=== PATIENT | male | born 1995 | race African-American/Black ===

== ENCOUNTER 2017-07-15 18:07 | Emergency (ER) | payer BC ==
[~2017-07-15] VITALS: Ht 182.9 cm; Wt 66.2 kg
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
[2017-07-15 19:05] LABS: BARBITURATES NEG (NEG); BENZODIAZEPINES NEG (NEG); CANNABINOIDS NEG (NEG); COCAINE NEG (NEG); METHADONE NEG (NEG); OPIATES NEG (NEG); PHENCYCLIDINE NEG (NEG)
[2017-07-15] MEDS ORDERED: diazePAM 5 MG TABLET PO ONE (19:15)
[2017-07-15] MEDS ORDERED: KETOROLAC 30 MG/ML INJ. IV ONE (19:15)
[2017-07-15] MEDS ORDERED: IV NORMAL SALINE 1000ML BAG 1,000 ML IV ONE (19:15)
[2017-07-15 19:32] LABS: BASO # 0.1 x10^3/uL (0.0-0.2); BASO % 1 % (0-3); EOS % 1 % (0-3); HEMATOCRIT 48.6 % (39.0-53.0); HEMOGLOBIN 16.4 g/dL (13.0-17.5); LYMPH # 2.1 x10^3/uL (1.0-4.8); LYMPH % 32 % (24-48); MEAN CORPUSCULAR HEMOGLOBIN 29 pg (25-35); MEAN CORPUSCULAR HGB CONC 34 g/dL (31-37); MEAN CORPUSCULAR VOLUME 86 fL (79-100); MONO % 7 % (0-9); NEUT % 59 % (31-73); PLATELET COUNT 270 x10^3/uL (140-400); RED BLOOD COUNT 5.66 x10^6/uL (4.30-5.70); RED CELL DISTRIBUTION WIDTH 13.3 % (11.5-14.5); WHITE BLOOD COUNT 6.7 x10^3/uL (4.0-11.0)
[2017-07-15 19:49] LABS: CALCIUM 9.6 mg/dL (8.5-10.1); CREATININE 1.2 mg/dL (0.7-1.3); GFR 93.4; POTASSIUM 3.6 mmol/L (3.5-5.1)
[2017-07-15 20:10] LABS: CKMB MASS < 0.5 ng/mL (0.0-3.6); CREATINE KINASE 197 U/L (39-308)
[2017-07-15 20:30] VITALS: BP 118/64
[2017-07-15] MEDS ORDERED: NAPR500T4 PO (20:38)
[2017-07-15] MEDS ORDERED: DIAZ5TAB PO (20:38)
--- NOTE | 2017-07-16 07:02 | EKG ---
[facility] [address] [place] [address] Test Date: 2017-07-15 Test Time: 18:41:48 Pat Name: FERNANDEZ BORRERO Department: Room: Gender: M Lube Technician: : 1995 Requested By: VERITO FERMIN Order Number: [id number] Reading MD: Temitope Lawrence Measurements Intervals [place] Rate: 119 P: 42 [place]: 114 QRS: 113 QRSD: 80 T: 61 QT: 284 QTc: 406 Interpretive Statements SINUS TACHYCARDIA LEFT ATRIAL ABNORMALITY ABNORMAL RIGHT AXIS DEVIATION ABNORMAL ECG Electronically Signed On 07-16-2017 19:53:34 CDT by Temitope Lawrence
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
== END 2017-07-15 20:45 | disposition home or self-care (01) ==
LOC: ER 18:07
DX: G89.29 Other chronic pain (principal); M54.2 Cervicalgia; F41.9 Anxiety disorder, unspecified; R06.02 Shortness of breath; R07.89 Other chest pain
CPT/HCPCS: 36415; 71020; 80048; 80307; 82553; 84484; 85025; 85379; 93005; 96361; 96374; 99285; G0480; J1885; J7030; G0479

== ENCOUNTER 2019-04-05 08:37 | Emergency (ER) | payer BC ==
[~2019-04-05] VITALS: Ht 182.9 cm; Wt 68.0 kg
[~2019-04-05 08:37] MED LIST: DIAZ5TAB PO; NAPR-514 PO
[2019-04-05] MEDS ORDERED: MORPHINE SULFATE 10 MG/ML VIAL. IV ONE ×2 (09:00→10:30)
[2019-04-05] MEDS ORDERED: ONDANSETRON PF 4 MG/2 ML VIAL. IV ONE (09:00)
--- NOTE | 2019-04-05 09:17 | PHYS DOC ---
Past Medical History Past Medical History: No Pertinent History Past Surgical History: No Surgical History Alcohol Use: None Drug Use: None Adult General Chief Complaint Chief Complaint: GROIN PAIN HPI HPI Patient is a 23 year old male with no significant medical history who presents to the ED today complaining of 10 out of 10 right groin pain that began yesterday after heavy lifting at work. Patient states he noted a mass on the right groin region after lifting at work when the pain began. Patient states the pain to the area is throbbing and intermittent. Denies anything specifically exacerbating or relieving. Denies having history of inguinal hernias. Denies any nausea vomiting. Denies any concerns of STDs, denies any nausea, vomiting, diarrhea, abdominal pain. Review of Systems Review of Systems Constitutional: Denies fever or chills [] Eyes: Denies change in visual acuity, redness, or eye pain [] HENT: Denies nasal congestion or sore throat [] Respiratory: Denies cough or shortness of breath [] Cardiovascular: No additional information not addressed in HPI [] GI: Denies abdominal pain, nausea, vomiting, bloody stools or diarrhea [] Male -right groin mass : Denies dysuria or hematuria [] Musculoskeletal: Denies back pain or joint pain [] Integument: Denies rash or skin lesions [] Neurologic: Denies headache, focal weakness or sensory changes [] Endocrine: Denies polyuria or polydipsia [] All other systems were reviewed and found to be within normal limits, except as documented in this note. Current Medications Current Medications Current Medications Medications (Trade) Dose Ordered Sig/Michael Start Time Stop Time Status Last Admin Dose Admin Azithromycin (Zithromax) 1,000 mg 1X ONCE 04/05/19 11:30 04/05/19 11:32 DC Ceftriaxone Sodium (Rocephin) 1 gm 1X ONCE 04/05/19 11:30 04/05/19 11:32 DC Info (CONTRAST GIVEN -- Rx MONITORING) 1 each PRN DAILY PRN 04/05/19 09:30 04/07/19 09:29 Iohexol (Omnipaque 300 Mg/ml) 75 ml 1X ONCE 04/05/19 09:30 04/05/19 09:31 DC 04/05/19 09:50 75 ML Morphine Sulfate (Morphine Sulfate) 5 mg 1X ONCE 04/05/19 10:30 04/05/19 10:31 DC 04/05/19 10:26 5 MG Ondansetron HCl (Zofran) 4 mg 1X ONCE 04/05/19 09:00 04/05/19 09:01 DC 04/05/19 09:15 4 MG Allergies Allergies Allergies Coded Allergies Type Severity Reaction Last Updated Verified No Known Drug Allergies 07/15/17 No Physical Exam Physical Exam Constitutional: Well developed, well nourished, no acute distress, non-toxic appearance. [] HENT: Normocephalic, atraumatic, bilateral external ears normal, oropharynx moist, no oral exudates, nose normal. [] Eyes: PERRLA, EOMI, conjunctiva normal, no discharge. [] Neck: Normal range of motion, no tenderness, supple, no stridor. [] Cardiovascular:Heart rate regular rhythm, no murmur [] Lungs & Thorax: Bilateral breath sounds clear to auscultation [] Abdomen: Bowel sounds normal, soft, no tenderness, no masses, no pulsatile masses. [] Male exam-right groin with a mass suspicious of an inguinal hernia that was reducible in the ED by me. No testicular mass is noted. Skin: Warm, dry, no erythema, no rash. [] Back: No tenderness, no CVA tenderness. [] Extremities: No tenderness, no cyanosis, no clubbing, ROM intact, no edema. [] Neurologic: Alert and oriented X 3, normal motor function, normal sensory function, no focal deficits noted. [] Psychologic: Affect normal, judgement normal, mood normal. [] Current Patient Data Vital Signs Vital Signs Date Time Temp Pulse Resp B/P (MAP) Pulse Ox O2 Delivery O2 Flow Rate FiO2 04/05/19 10:26 15 96 Room Air 04/05/19 08:47 98.4 87 133/70 (91) 98.4 Lab Values Laboratory Tests Test 04/05/19 09:05 04/05/19 10:45 White Blood Count 8.2 x10^3/uL (4.0-11.0) Red Blood Count 5.12 x10^6/uL (4.30-5.70) Hemoglobin 14.5 g/dL (13.0-17.5) Hematocrit 43.1 % (39.0-53.0) Mean Corpuscular Volume 84 fL (79-100) Mean Corpuscular Hemoglobin 28 pg (25-35) Mean Corpuscular Hemoglobin Concent 34 g/dL (31-37) Red Cell Distribution Width 13.7 % (11.5-14.5) Platelet Count 246 x10^3/uL (140-400) Neutrophils (%) (Auto) 38 % (31-73) Lymphocytes (%) (Auto) 49 % (24-48) H Monocytes (%) (Auto) 8 % (0-9) Eosinophils (%) (Auto) 4 % (0-3) H Basophils (%) (Auto) 1 % (0-3) Neutrophils # (Auto) 3.1 x10^3/uL (1.8-7.7) Lymphocytes # (Auto) 4.0 x10^3/uL (1.0-4.8) Monocytes # (Auto) 0.7 x10^3/uL (0.0-1.1) Eosinophils # (Auto) 0.3 x10^3/uL (0.0-0.7) Basophils # (Auto) 0.1 x10^3/uL (0.0-0.2) Sodium Level 138 mmol/L (136-145) Potassium Level 3.8 mmol/L (3.5-5.1) Chloride Level 101 mmol/L (98-107) Carbon Dioxide Level 27 mmol/L (21-32) Anion Gap 10 (6-14) Blood Urea Nitrogen 19 mg/dL (8-26) Creatinine 1.1 mg/dL (0.7-1.3) Estimated GFR (Cockcroft-Gault) 101.3 BUN/Creatinine Ratio 17 (6-20) Glucose Level 84 mg/dL (70-99) Calcium Level 9.3 mg/dL (8.5-10.1) Total Bilirubin 0.9 mg/dL (0.2-1.0) Aspartate Amino Transferase (AST) 27 U/L (15-37) Alanine Aminotransferase (ALT) 25 U/L (16-63) Alkaline Phosphatase 68 U/L (46-116) Total Protein 8.6 g/dL (6.4-8.2) H Albumin 4.3 g/dL (3.4-5.0) Albumin/Globulin Ratio 1.0 (1.0-1.7) Urine Collection Type Void Urine Color Yellow Urine Clarity Clear Urine pH 7.0 Urine Specific [place] >=1.030 Urine Protein Negative mg/dL (NEG-TRACE) Urine Glucose (UA) Negative mg/dL (NEG) Urine Ketones (Stick) Trace mg/dL (NEG) Urine Blood Trace (NEG) Urine Nitrite Negative (NEG) Urine Bilirubin Negative (NEG) Urine Urobilinogen Dipstick 1.0 mg/dL (0.2 mg/dL) Urine Leukocyte Esterase Large (NEG) Urine RBC Occ /HPF (0-2) Urine WBC 5-10 /HPF (0-4) Urine Bacteria 0 /HPF (0-FEW) Laboratory Tests 04/05/19 09:05 Laboratory Tests 04/05/19 09:05 EKG EKG [] Radiology/Procedures Radiology/Procedures []PROCEDURE: CT ABD PELV W/ IV CONTRST ONLY Examination: CT of the abdomen pelvis with IV contrast HISTORY: History of right groin mass, inguinal hernia for one day COMPARISON: None available Technique: Axial CT images of the abdomen pelvis were performed with IV contrast. Coronal and sagittal reformats are performed. Exposure: One or more of the following individualized dose reduction techniques were utilized for this examination: 1. Automated exposure control 2. Adjustment of the mA and/or kV according to patient size 3. Use of iterative reconstruction technique FINDINGS: The bibasilar lungs are clear. No evidence of free air identified in the abdomen. The visualized liver, spleen, adrenals grossly appears unremarkable. The gallbladder is mildly distended. The stomach is mildly distended. The visualized pancreas grossly appears unremarkable. Few fluid distended small bowel loops identified. Feces and gas noted in the colon. The appendix is not well-visualized. No evidence of obvious inguinal hernia identified. The bilateral kidneys enhance symmetrically. No evidence of lytic bony destructive lesion. IMPRESSION: 1. Few fluid distended small bowel loops identified in the lower abdomen, nonspecific. Otherwise unremarkable exam. Electronically signed by: Ronnie Johnson MD (04/05/2019 10:10 AM) [facility] DICTATED and SIGNED BY: RONNIE JOHNSON MD DATE: 04/05/19 1010 Course & Med Decision Making Course & Med Decision Making Pertinent Labs and Imaging studies reviewed. (See chart for details) This is a 23-year-old male patient presenting to the ED today with a mass and pain to the right groin area after heavy lifting at work yesterday. The mass was suspicious of an inguinal hernia which was reduced in the ED successfully. CBC, CMP-no acute findings. CT of the abdomen and pelvic was negative for any acute findings. Urine analysis is noted for large amount of leukocytes-urine was sent to lab for STD check, patient was treated prophylaxis. D/C with doxycycline. STD education provided. Dragon Disclaimer Dragon Disclaimer This electronic medical record was generated, in whole or in part, using a voice recognition dictation system. Departure Departure Impression: Primary Impression: Urinary tract infection Additional Impression: Inguinal hernia, right Disposition: HOME, SELF-CARE Condition: STABLE Referrals: NO PCP (PCP) NOLBERTO STRICKLAND MD Follow-up in one week for the hernia Patient Instructions: Inguinal Hernia, Adult, Care After, Urinary Tract Infection Additional Instructions: You were evaluated in the emergency room and noted to have a right inguinal hernia which was reduced in the emergency room. We provided you a general surgeon, follow-up with them in the next 1 week for the hernia. Your urine was noted to have infection. We treated you in the emergency room and sent you home with more antibiotics, ensure you take them to completion. Scripts Doxycycline Hyclate (DOXYCYCLINE HYCLATE) 100 Mg Tablet 1 TAB PO BID, #14 TAB Prov: VERITO FERMIN APRN 04/05/19 Problem Qualifiers Primary Impression: Urinary tract infection Urinary tract infection type: site unspecified Hematuria presence: without hematuria Qualified Codes: N39.0 - Urinary tract infection, site not specified VERITO FERMIN APRN Apr 05, 2019 09:17
[2019-04-05] MEDS ORDERED: IOHEXOL 300 MG/ML 100ML VIAL. IV ONE (09:30)
[2019-04-05] MEDS ORDERED: CONTRAST GIVEN. MC PRN (09:30)
[2019-04-05 09:33] LABS: BASO # 0.1 x10^3/uL (0.0-0.2); BASO % 1 % (0-3); EOS # 0.3 x10^3/uL (0.0-0.7); EOS % 4 % (0-3); HEMATOCRIT 43.1 % (39.0-53.0); HEMOGLOBIN 14.5 g/dL (13.0-17.5); LYMPH % 49 % (24-48); MEAN CORPUSCULAR HEMOGLOBIN 28 pg (25-35); MEAN CORPUSCULAR HGB CONC 34 g/dL (31-37); MEAN CORPUSCULAR VOLUME 84 fL (79-100); MONO # 0.7 x10^3/uL (0.0-1.1); MONO % 8 % (0-9); NEUT # 3.1 x10^3/uL (1.8-7.7); NEUT % 38 % (31-73); PLATELET COUNT 246 x10^3/uL (140-400); RED BLOOD COUNT 5.12 x10^6/uL (4.30-5.70); RED CELL DISTRIBUTION WIDTH 13.7 % (11.5-14.5); WHITE BLOOD COUNT 8.2 x10^3/uL (4.0-11.0)
[2019-04-05 09:39] LABS: CALCIUM 9.3 mg/dL (8.5-10.1); CREATININE 1.1 mg/dL (0.7-1.3); GFR 101.3; POTASSIUM 3.8 mmol/L (3.5-5.1)
[2019-04-05 09:45] LABS: ALBUMIN 4.3 g/dL (3.4-5.0); TOTAL BILIRUBIN 0.9 mg/dL (0.2-1.0); TOTAL PROTEIN 8.6 g/dL (6.4-8.2)
--- NOTE | 2019-04-05 10:12 | RAD ---
Examination: CT of the abdomen pelvis with IV contrast HISTORY: History of right groin mass, inguinal hernia for one day COMPARISON: None available Technique: Axial CT images of the abdomen pelvis were performed with IV contrast. Coronal and sagittal reformats are performed. Exposure: One or more of the following individualized dose reduction techniques were utilized for this examination: 1. Automated exposure control 2. Adjustment of the mA and/or kV according to patient size 3. Use of iterative reconstruction technique FINDINGS: The bibasilar lungs are clear. No evidence of free air identified in the abdomen. The visualized liver, spleen, adrenals grossly appears unremarkable. The gallbladder is mildly distended. The stomach is mildly distended. The visualized pancreas grossly appears unremarkable. Few fluid distended small bowel loops identified. Feces and gas noted in the colon. The appendix is not well-visualized. No evidence of obvious inguinal hernia identified. The bilateral kidneys enhance symmetrically. No evidence of lytic bony destructive lesion. IMPRESSION: 1. Few fluid distended small bowel loops identified in the lower abdomen, nonspecific. Otherwise unremarkable exam. Electronically signed by: Ronnie Johnson MD (04/05/2019 10:10 AM) [facility]
[2019-04-05 11:01] LABS: BILIRUBIN,URINE NEGATIVE (NEG); CLARITY,URINE CLEAR; COLOR,URINE YELLOW; NITRITE,URINE NEGATIVE (NEG); PROTEIN,URINE NEGATIVE (NEG-TRACE)
[2019-04-05 11:15] VITALS: BP 109/78
[2019-04-05 11:18] LABS: BACTERIA,URINE 0 /HPF (0-FEW); RBC,URINE OCC /HPF (0-2)
[2019-04-05] MEDS ORDERED: cefTRIAXone IV Push 1 GM VIAL. IVP ONE (11:30)
[2019-04-05] MEDS ORDERED: AZITHROMYCIN 250 MG TABLET. PO ONE (11:30)
[2019-04-05] MEDS ORDERED: DOXY100T PO (11:46)
== END 2019-04-05 12:16 | disposition home or self-care (01) ==
LOC: ER 08:37
DX: N39.0 Urinary tract infection, site not specified (principal); K40.90 Unilateral inguinal hernia, without obstruction or gangrene, not specified as recurrent
CPT/HCPCS: 36415; 74177; 80053; 81001; 85025; 87491; 87591; 96374; 96375; 96376; 99285; J0696; J2270; J2405; Q0144; Q9967